=== PATIENT | male | born 1980 | race Caucasian/White ===

== ENCOUNTER 2023-11-28 11:44 | Day surgery (SDC) | payer BC ==
[2023-11-25 13:05] VITALS: BMI 35.2
[~2023-11-28 11:44] MED LIST: LIDOCAINE 1% (10MG/ML) FOR IV START INTRADERMA PRN; ONDANSETRON 4 MG/2 ML VIAL IVP PRN
[2023-11-28] MEDS: LACTATED RINGERS 1,000 ML IV SCH (12:34)
[2023-11-28 13:02] VITALS: RESP 16; TEMP 97.8
[2023-11-28] MEDS ORDERED: LIDOCAINE 1% INJ 10MG/ML (20 ML MDV) ONE (13:15)
[2023-11-28] MEDS ORDERED: KETAMINE HCL IN 0.9 % NACL 50 MG/5 ML SYRINGE ONE (13:15)
[2023-11-28] MEDS ORDERED: PROPOFOL 10 MG/ML 20 ML VIAL IV ONE (13:15)
[2023-11-28] MEDS ORDERED: GLYCOPYRROLATE 0.2 MG/ML 2 ML VIAL ONE (13:15)
--- NOTE | 2023-11-28 13:33 | P.PCN ---
Date of Procedure: 11/28/23 Procedure(s) Performed: BRIEF HISTORY: Patient is a 43-year-old, pleasant, male scheduled for an upper endoscopy as a part of evaluation of intermittent dysphagia to solids for the last 1 year duration. He has these episodes 3-4 times a month and often with solids. Does have long-standing history of GERD but usually takes Tums as needed. PROCEDURE PERFORMED: Esophagogastroduodenoscopy with biopsy and dilation. PREOPERATIVE DIAGNOSIS: Standing history of GERD and intermittent dysphagia to solids of 1 year duration. IV sedation per anesthesia. PROCEDURE: After informed consent was obtained, the patient was brought into the endoscopy unit. IV sedation was administered by Anesthesia under continuous monitoring. Initially the Olympus GIF-140 video endoscope was inserted into the mouth. Esophagus intubated without any difficulty. It was gradually advanced into the stomach and duodenum and carefully examined. The bulb and the second part of the duodenum appeared normal. The scope at this time was withdrawn to the stomach, adequately insufflated with air, and upon careful examination, muco sa of the antrum, body, cardia and the fundus appeared normal. The scope was then withdrawn into the esophagus. Small hiatal hernia noted. The GE junction was located at 39 cm from the incisors. The distal esophageal stricture identified and this was dilated using 12 and 13.5 mm TTS balloon for 60 seconds. Following dilation there was some oozing identified which spontaneously resolved. There was circumferential erythema the GE junction and thickened mid and distal esophageal folds suspicious for years of esophagitis and hence multiple biopsies were done from this area. Rest of esophagus appeared normal and the patient tolerated the procedure well. IMPRESSION: 1. Distal esophageal stricture status post balloon dilation using 12 and 13.5 limited TTS balloon as described above. 2. Circumferential erythema of the distal esophagus and thickened esophageal folds in the mid and distal esophagus status post multiple biopsies to evaluate for reflux esophagitis versus eosinophilic esophagitis 3. Small hiatal hernia. RECOMMENDATIONS: The findings of this examination were discussed with the patient as well as his family. He was advised to be on a clear liquid diet for 2 hours. Start on Prilosec 20 mg daily and follow antrum reflux measures. Follow up in office in 6 weeks.
[2023-11-28 14:05] VITALS: BP 159/95; PULSE 67
== END 2023-11-28 14:21 | disposition home or self-care (01) ==
LOC: ORWHC2ENDO 11:44
PROVIDERS: ATTEND Internal Medicine Gastroenterology
DX: K21.00 Gastro-esophageal reflux disease with esophagitis, without bleeding (principal); K22.2 Esophageal obstruction; K44.9 Diaphragmatic hernia without obstruction or gangrene; I10 Essential (primary) hypertension; E78.5 Hyperlipidemia, unspecified; Z79.899 Other long term (current) drug therapy; Z98.890 Other specified postprocedural states
CPT/HCPCS: 43239; 43249; 88305